=== PATIENT | male | born 1940 | race Two or more races ===

== ENCOUNTER 2019-03-10 09:00 | Day surgery (SDC) | payer OTHER | END 2019-03-10 14:43 | disposition home or self-care (01) | LOC: AMB-ENDOS 09:00 | DX: C20 Malignant neoplasm of rectum (principal); Z93.3 Colostomy status ==

== ENCOUNTER 2020-03-29 06:15 | Day surgery (SDC) | payer OTHER | END 2020-03-29 09:40 | disposition home or self-care (01) | LOC: AMB-ENDOS 06:15 | PROVIDERS: ATTEND Surgery | DX: K62.89 Other specified diseases of anus and rectum (principal); Z20.828 Contact with and (suspected) exposure to other viral communicable diseases ==

== ENCOUNTER 2021-03-28 09:18 | Day surgery (SDC) | payer OTHER | END 2021-03-28 13:55 | disposition home or self-care (01) | LOC: AMB-ENDOS 09:18 | PROVIDERS: ATTEND Surgery | DX: K62.89 Other specified diseases of anus and rectum (principal) ==